=== PATIENT | female | born 1955 | race Caucasian/White ===

== ENCOUNTER → 2020-10-29 | Outpatient (CLI) | payer BC ==
--- NOTE | 2020-10-29 14:33 | RAD ---
Examination: Limited left breast ultrasound. INDICATION: 65-year-old woman recalled from screening for nodular densities in the left breast centra lly and at the 2:00 position. COMPARISON: Bilateral screening mammogram of 10/19/2020. TECHNIQUE: Grayscale ultrasound imaging of the superior and upper outer quadrant left breast was perf ormed targeting both the 12:00 position through the 3:00 position including the 2:00 upper outer left breast. FINDINGS: No sonographic abnormality was identified in the superior central left breast. At the 3:00 position 10 cm from the nipple, a parallel orientation mixed echogenicity 8mm oval mass w as identified that could reflect the mammographic finding recalled from screening. There is no internal controls specialist al blood flow. No sonographic correlate was clearly identified in the superior central left breast. IMPRESSION: Probably benign complicated cyst in the upper-outer quadrant left breast and probably benign overlap of fibroglandular tissue in the superior central left breast. BI-RADS Category 3 Probably benign findings Recommend 6 month follow-up left diagnostic mammogram with possible targeted ultrasound. Electronically signed by: Audi Mckenna MD (10/29/2020 2:31 PM) [id number]
== END ==
LOC: MAMMO 12:47
PROVIDERS: ATTEND Family Medicine
DX: R92.2 Inconclusive mammogram (principal)
CPT/HCPCS: 76641